=== PATIENT | male | born 1935 | race Caucasian/White ===

== ENCOUNTER 2021-01-21 13:23 | Outpatient (CLI) | payer MEDICARE, OTHER ==
[2021-01-21 14:47] LABS: #Basophils 0.1 10x3/uL (0.0-0.2); #Eosinphils 0.2 10x3/uL (0.0-0.5); #Monocytes 0.8 10x3/uL (0.0-1.1); #Neutrophils 3.9 10x3/uL (1.5-8.4); %Basophils 0.7 % (0.0-2.0); %Eosinophils 3.2 % (0.0-6.0); %Lymphocytes 26.9 % (18.0-47.0); %Neutrophils 56.9 % (40.0-75.0); Hemoglobin 11.9 g/dL (13.5-17.5); Mean Corpuscular HGB CONC 32.2 g/dL (32.0-36.0); Mean Corpuscular Volume 89.8 fl (81.2-95.1); Mean Platelet Volume 10.3 fl (7.4-10.4); Platelet Count 245 10x3/uL (150-450); RBC Distribution Width 12.8 % (11.5-14.5); Red Blood Cell (RBC) Count 4.11 10x6/uL (4.32-5.72); White Blood Cell (WBC) Count 6.8 10x3/uL (3.5-10.5)
[2021-01-21 14:52] LABS: Anion Gap 14 mmol/L (10-20); BUN (Urea Nitrogen) 17 mg/dL (8.4-25.7); Calc. Creatinine Clearance 0 mL/min (70-130); Calcium 9.4 mg/dL (7.8-10.44); Carbon Dioxide 27 mmol/L (23-31); Chloride 103 mmol/L (98-107); Glucose 107 mg/dL (83-110); Potassium 3.8 mmol/L (3.5-5.1); Sodium 140 mmol/L (136-145)
[2021-01-21 14:54] LABS: Bilirubin Neg (Negative); Blood, Urine 50 (Negative); Clarity Clear (Clear); Glucose, Urine (Dipstick) Normal (Negative); Ketone, Urine Negative (Negative); Leukocyte Negative (Negative); Nitrite Negative (Negative); Protein, Urine (Dipstick) Negative (Neg-Trace); Urobilinogen Normal mg/dL (Less than 2)
[2021-01-21 15:02] LABS: Bacteria/HPF None Seen HPF (None Seen); Squamous Epithelial 0-3 HPF (0-3); WBC/HPF 0-3 HPF (0-3)
[2021-01-22 02:35] LABS: SARS-CoV-2 PCR by NAA Not Detected (NotDetected)
== END 2021-01-21 13:24 | disposition home or self-care (01) ==
LOC: LABBT 13:23
PROVIDERS: ATTEND Orthopaedic Surgery
DX: Z01.818 Encounter for other preprocedural examination (principal); Z20.822 Contact with and (suspected) exposure to COVID-19; M17.11 Unilateral primary osteoarthritis, right knee
CPT/HCPCS: 80048; 81001; 85025; 85610; 87081; 93005; U0003; U0005; 87635; 93010

== ENCOUNTER 2021-01-26 05:41 | Inpatient (IN) | payer MEDICARE, OTHER ==
[2021-01-22 11:36] VITALS: BMI 25.7
[2021-01-26] MEDS ORDERED: Tranexamic Acid 1,000 MG/10 ML VIAL ONE ×2 (05:55→09:18)
[2021-01-26] MEDS ORDERED: Sodium Chloride 0.9% 100 ML ONE (05:55)
[2021-01-26] MEDS ORDERED: Vancomycin 1.5 GRAM/300 ML BAG ONE (05:55)
[2021-01-26] MEDS ORDERED: Fentanyl 100 MCG/2 ML VIAL ONE ×3 (06:10→09:58)
[2021-01-26] MEDS ORDERED: Midazolam HCl 2 mg/2 ml Vial ONE (06:20)
[2021-01-26] MEDS ORDERED: Bupivacaine PF 0.5% 30 ML VIAL ONE (06:26)
[2021-01-26] MEDS ORDERED: Lidocaine 1% w/Epinephrine 1:100K 20 ML VIAL ONE (06:26)
[2021-01-26] MEDS ORDERED: ePHEDrine 50 MG/ML VIAL ONE ×3 (07:17→08:15)
[2021-01-26] MEDS ORDERED: Ropivacaine 0.5% HCl/PF (150 MG/30 ML VIAL) ONE (07:17)
[2021-01-26] MEDS ORDERED: PROPOFOL 200 MG/20 ML VIAL ONE (07:17)
[2021-01-26] MEDS ORDERED: Lidocaine 1% PF 5 ML VIAL ONE (07:17)
[2021-01-26] MEDS ORDERED: Dexamethasone 20 MG/5 ML VIAL ONE (07:17)
[2021-01-26] MEDS ORDERED: Ondansetron PF 4 MG/2 ML Vial ONE (07:17)
[2021-01-26] MEDS ORDERED: PHENYLEPHRINE-NS 100 MCG/ML 10 ML SYRINGE ONE (07:17)
[2021-01-26] MEDS ORDERED: Ropivacaine 2% HCl/PF (20 MG/10 ML VIAL) ONE (07:17)
[2021-01-26] MEDS ORDERED: Promethazine HCl 25 MG/ML VIAL IM PRN ×2 (07:18→08:15)
[2021-01-26] MEDS ORDERED: Ondansetron PF 4 MG/2 ML Vial IVP PRN (07:18)
[2021-01-26] MEDS ORDERED: Fentanyl 100 MCG/2 ML VIAL SLOW IVP PRN ×2 (07:18→08:08)
[2021-01-26] MEDS ORDERED: diphenhydrAMINE 25 MG CAP PO PRN (07:18)
[2021-01-26] MEDS ORDERED: HYDROcodone/Acetaminophen 10/325 mg Tablet PO PRN ×3 (07:18→08:15)
[2021-01-26] MEDS ORDERED: traMADol HCl 50 MG TAB PO PRN (07:18)
[2021-01-26] MEDS ORDERED: Zolpidem Tartrate 5 MG TAB PO PRN ×2 (07:18→08:15)
[2021-01-26] MEDS ORDERED: Tranexamic Acid 1,000 MG in Sodium Chloride 0.9% 100 ML IVPB SCH (08:00)
[2021-01-26] MEDS ORDERED: Ketorolac Tromethamine 30 MG/ML VIAL IVP PRN (08:15)
[2021-01-26] MEDS ORDERED: Ropivacaine HCl/PF 250 ML in Premix Bag 1 BAG NERVE BLCK SCH (08:15)
[2021-01-26] MEDS: Valsartan 80 MG TAB PO SCH (12:06)
[2021-01-26] MEDS: Hydrochlorothiazide 25 MG TAB PO SCH (12:07)
[2021-01-26] MEDS: Ferrous Gluconate 324 MG TAB PO SCH ×2 (12:14→20:36)
[2021-01-26] MEDS: Atenolol 50 MG TAB PO SCH ×2 (12:14→20:35)
[2021-01-26] MEDS: Aspirin 81 mg Enteric Coated Tablet PO SCH ×2 (12:14→20:36)
[2021-01-26] MEDS: Multivitamin W/ Minerals 1 TAB PO SCH (12:14)
[2021-01-26] MEDS: CeleCOXIB 100 MG CAP PO SCH (12:14)
[2021-01-26] MEDS: Sodium Chloride 0.9% 1,000 ML IV SCH ×2 (12:15→22:30)
[2021-01-26] MEDS: CEFAZOLIN 2 GM in Premix Bag 1 BAG IVPB SCH ×2 (14:15→22:19)
[2021-01-26] MEDS: traMADol HCl 50 MG TAB PO PRN (16:28)
[2021-01-26] MEDS: Ondansetron PF 4 MG/2 ML Vial IVP PRN (17:10)
[2021-01-26] MEDS ORDERED: Vancomycin 1.5 GRAM/300 ML BAG 1.5 GM in Premix Bag 1 BAG IVPB SCH (18:00)
[2021-01-26] MEDS: Tamsulosin HCl 0.4 MG CAP PO SCH (20:35)
[2021-01-26] MEDS: Atorvastatin Calcium 20 MG TAB PO SCH (20:36)
[2021-01-26] MEDS: Finasteride 5 MG TAB PO SCH (20:36)
[2021-01-26] MEDS ORDERED: Aspirin 81 mg Enteric Coated Tablet PO SCH (21:00)
[2021-01-26] MEDS: HYDROcodone/Acetaminophen 10/325 mg Tablet PO PRN (22:24)
[2021-01-27] MEDS: Sodium Chloride 0.9% 1,000 ML IV SCH ×3 (04:31→23:27)
[2021-01-27 05:49] LABS: Hemoglobin 9.8 g/dL (14.0-18.0); Mean Corpuscular HGB CONC 34.3 g/dL (32.0-36.0); Mean Corpuscular Hemoglobin 30.9 pg (27.0-31.0); Mean Corpuscular Volume 90.1 fL (78.0-98.0); Mean Platelet Volume 7.9 fL (7.4-10.4); Platelet Count 190 thou/uL (130-400); RBC Distribution Width 11.7 % (11.5-14.5); Red Blood Cell (RBC) Count 3.17 mill/uL (4.70-6.10); White Blood Cell (WBC) Count 9.2 thou/uL (4.8-10.8)
[2021-01-27] MEDS: HYDROcodone/Acetaminophen 10/325 mg Tablet PO PRN (06:35)
[2021-01-27] MEDS: Ondansetron PF 4 MG/2 ML Vial IVP PRN (06:36)
[2021-01-27] MEDS: traMADol HCl 50 MG TAB PO PRN ×3 (09:01→20:26)
[2021-01-27] MEDS: Acetaminophen 325 MG TAB PO PRN ×3 (09:01→20:25)
[2021-01-27] MEDS: Atenolol 50 MG TAB PO SCH ×2 (10:59→20:27)
[2021-01-27] MEDS: Valsartan 80 MG TAB PO SCH (11:00)
[2021-01-27] MEDS: Senokot S 8.6-50 MG TAB PO SCH ×2 (11:00→20:27)
[2021-01-27] MEDS: Multivitamin W/ Minerals 1 TAB PO SCH (11:00)
[2021-01-27] MEDS: Hydrochlorothiazide 25 MG TAB PO SCH (11:01)
[2021-01-27] MEDS: Aspirin 81 mg Enteric Coated Tablet PO SCH ×2 (11:03→20:27)
[2021-01-27] MEDS: CeleCOXIB 100 MG CAP PO SCH (11:04)
[2021-01-27] MEDS: Ferrous Gluconate 324 MG TAB PO SCH ×2 (11:07→20:28)
[2021-01-27] MEDS: Tamsulosin HCl 0.4 MG CAP PO SCH (20:27)
[2021-01-27] MEDS: Finasteride 5 MG TAB PO SCH (20:28)
[2021-01-27] MEDS: Atorvastatin Calcium 20 MG TAB PO SCH (20:28)
[2021-01-27] MEDS ORDERED: HYDROcodone/Acetaminophen 7.5/325 mg Tablet PO PRN ×2 (21:58)
[2021-01-28] MEDS: Acetaminophen 325 MG TAB PO PRN (04:03)
[2021-01-28] MEDS: traMADol HCl 50 MG TAB PO PRN ×2 (04:05→10:01)
[2021-01-28 05:57] LABS: Hemoglobin 9.8 g/dL (14.0-18.0); Mean Corpuscular HGB CONC 32.7 g/dL (32.0-36.0); Mean Corpuscular Hemoglobin 29.4 pg (27.0-31.0); Mean Platelet Volume 8.2 fL (7.4-10.4); Platelet Count 174 thou/uL (130-400); Red Blood Cell (RBC) Count 3.33 mill/uL (4.70-6.10); White Blood Cell (WBC) Count 11.1 thou/uL (4.8-10.8)
[2021-01-28] MEDS: CeleCOXIB 100 MG CAP PO SCH (08:40)
[2021-01-28] MEDS: Valsartan 80 MG TAB PO SCH (08:40)
[2021-01-28] MEDS: Hydrochlorothiazide 25 MG TAB PO SCH (08:40)
[2021-01-28] MEDS: Aspirin 81 mg Enteric Coated Tablet PO SCH (08:40)
[2021-01-28] MEDS: Multivitamin W/ Minerals 1 TAB PO SCH (08:41)
[2021-01-28] MEDS: Atenolol 50 MG TAB PO SCH (08:41)
[2021-01-28] MEDS: Ferrous Gluconate 324 MG TAB PO SCH (08:41)
[2021-01-28] MEDS: Senokot S 8.6-50 MG TAB PO SCH (09:24)
[2021-01-28 11:59] VITALS: BP 127/70; TEMP 98.2
== END 2021-01-28 15:45 | disposition home or self-care (01) | DRG 470 ==
LOC: SDC 05:41 → SURG B 07:18 → SDC 01-28 08:17 → SURG B 01-28 08:17
PROVIDERS: ADMIT Orthopaedic Surgery; ATTEND Orthopaedic Surgery
PROC: 0SRC0J9 Replacement of Right Knee Joint with Synthetic Substitute, Cemented, Open Approach (ICD-10-PCS; principal; 2021-01-26)
PROC: 8E0YXBZ Computer Assisted Procedure of Lower Extremity (ICD-10-PCS; 2021-01-26)
DX: M17.11 Unilateral primary osteoarthritis, right knee (principal); I10 Essential (primary) hypertension; E78.5 Hyperlipidemia, unspecified; N40.0 Benign prostatic hyperplasia without lower urinary tract symptoms; Z87.891 Personal history of nicotine dependence; Z79.82 Long term (current) use of aspirin; Z79.899 Other long term (current) drug therapy
CPT/HCPCS: 36415; 85027; C1713; C1776; J0690; J1100; J1885; J2250; J2405; J2550; J2704; J2795; J3010; J3370; J3490; S0020